=== PATIENT | male | born 1950 | race Caucasian/White ===

== ENCOUNTER 2018-01-05 07:40 | Day surgery (SDC) | payer MEDICARE, BC ==
--- NOTE | 2017-12-27 21:17 | HP ---
CC: Luigi Thakur MD * ADMITTING HISTORY AND PHYSICAL: DATE OF ADMISSION: 01/05/18 ADMITTING DIAGNOSIS: Bladder cancer. PLANNED PROCEDURE: Transurethral resection of bladder tumor (second-look procedure). SURGEON: Clyde Vu MD HISTORY OF PRESENT ILLNESS: Gildardo Samano is a 67-year-old chronic heavy smoker who had initially been evaluated for gross hematuria. He had undergone transurethral resection of a large noninvasive, but very vascular tumor on 12/01/17. 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 There was no muscle reported in the initial sample and he is now being brought in for a second- look procedure to rule out any occult muscle invasive tumor. PAST MEDICAL HISTORY: Significant for: 1. Recent diagnosis of superficial bladder cancer. 2. Hypertension. 3. High cholesterol. MEDICATIONS ON ADMISSION: 1. Cardura 6 mg a day. 2. Simvastatin 40 mg a day. 3. Lisinopril 60 mg a day (I will be checking this dose through Dr. Thakur's office as it seems high to me). 4. Proscar 5 mg a day. ALLERGIES: No known drug allergies. SOCIAL HISTORY: Smoking history: He is a lifelong smoker with a 40 plus pack year smoking history. REVIEW OF SYSTEMS: He denies any chest pain or shortness of breath. There is no history of diabetes mellitus. PHYSICAL EXAMINATION GENERAL: Reveals a pleasant middle-aged gentleman. VITAL SIGNS: Blood pressure is 130/80, pulse 83 per minute and regular, oxygen saturation 99% on room air. LUNGS: Clear bilaterally. CARDIOVASCULAR: Regular rate and rhythm. S1, S2. ABDOMEN: Soft without masses. IMPRESSION: A 67-year-old gentleman with a large noninvasive high grade bladder tumor, who had significant neovascularity noted adjacent to the tumor at the time of initial transurethral resection. PLAN: Transurethral resection bladder tumor, second-look procedure to rule out any occult muscle invasive tumor. [id number]/[facility] #: [id number] [facility]ITAL[facility]
[~2018-01-05 07:40] MED LIST: Buffered Lidocaine 0.9% SYRIN* 5 ML/SYR SYRINGE INTRADERM ONE
[2018-01-05] MEDS ORDERED: cefTRIAXone(*) 2 GM ADDV.VIAL IVPB ONE (07:42)
[2018-01-05] MEDS ORDERED: Midazolam* 1 MG/ML 2 ML VIAL (2 MG) ONE (08:08)
[2018-01-05] MEDS ORDERED: Lisinopril TAB* 10 MG PO ONE (08:15)
[2018-01-05] MEDS ORDERED: Phenylephrine INJ* 10 MG/ML 1 ML VIAL (10 MG) ONE (08:35)
[2018-01-05] MEDS ORDERED: Levalbuterol 1.25MG/0.5ML NEB INH ONE (09:21)
[2018-01-05] MEDS ORDERED: Levalbuterol 0.63MG/3ML NEB* UNIT OF USE INH ONE (09:21)
[2018-01-05] MEDS ORDERED: Levalbuterol 1.25MG/0.5ML NEB ONE (09:23)
[2018-01-05] MEDS ORDERED: Acetaminophen TAB* 325 MG PO PRN (10:41)
[2018-01-05] MEDS ORDERED: Ondansetron INJ* 2 MG/ML VIAL IV PRN (10:41)
[2018-01-05] MEDS ORDERED: Naloxone* 0.4 MG/ML 1 ML VIAL IV PRN (10:41)
[2018-01-05] MEDS ORDERED: fentaNYL* 50 MCG/ML 2 ML VIAL (100 MCG VIAL) IV PRN (10:41)
[2018-01-05] MEDS ORDERED: mitoMYcin PWD* 40 MG in Sterile Water for Inj* 40 ML IRRIGATION ONE (12:00)
[2018-01-05] MEDS ORDERED: Morphine VIAL* 10 MG/ML 1 ML VIAL ONE (12:31)
[2018-01-05] MEDS ORDERED: fentaNYL* 50 MCG/ML 2 ML VIAL (100 MCG VIAL) ONE (12:32)
[2018-01-05] MEDS ORDERED: Acetaminophen TAB* 325 MG ONE (13:12)
[2018-01-05] MEDS ORDERED: hydrALAZINE IV* 20 MG/ML VIAL ONE (13:13)
[2018-01-05 13:53] VITALS: BP 150/80
--- NOTE | 2018-01-06 04:40 | OP ---
CC: Dr. Luigi Thakur * DATE OF OPERATION: 01/05/18 - [facility] DATE OF : 46 SURGEON: Clyde Vu MD ANESTHESIOLOGIST: Dr. Obando. ANESTHESIA: Spinal. PRE-OP DIAGNOSIS: Bladder cancer. POST-OP DIAGNOSIS: Bladder cancer. OPERATIVE PROCEDURE: Cystoscopy, transurethral resection of bladder tumor (3 to 4 cm), second look procedure. COMPLICATIONS: None. POSTOPERATIVE CONDITION: Stable. BLOOD LOSS: Less than 25 cc. INDICATIONS: Gildardo Samano is a 67-year-old chronic heavy smoker, who had undergone transurethral resection for high-grade transitional cell carcinoma. There was significant neovascularity noted at the time of initial resection and he is now being brought in for a second look procedure to make sure that I did not miss any areas of muscle invasive cancer. OPERATIVE FINDINGS: 1. Moderately enlarged prostate. 2. Small areas of possible residual tumor versus reaction from initial transurethral resection and right lateral wall of bladder. No evidence of any invasive tumor noted. POSTOPERATIVE CONDITION: Stable. DESCRIPTION OF PROCEDURE: After induction of spinal anesthesia, the patient was placed in dorsal lithotomy position. Sequential compression devices were in place and functioning. Initial cystoscopy revealed a normal-appearing urethra , moderately enlarged prostate. The bladder was examined. The previously placed stent was in appropriate in the right side. In the right lateral wall at the site of the previous tumor resection, there were some areas of raised irregular mucosa, which may represent residual tumor or may represent reactive changes from the resection. Represented biopsies were obtained and sent for histopathology. Using the resectoscope, all of the abnormal-appearing areas were resected down to muscle. At the end of the procedure, hemostasis appeared satisfactory. There was no evidence of bladder perforation and there were no remaining visibly abnormal areas noted. A 20-[place] Mc[place] was placed for temporary bladder drainage. The patient tolerated the procedure satisfactorily and was transferred back to the recovery area in stable. [id number]/[facility] #: [id number] [facility]
== END 2018-01-05 14:20 | disposition home or self-care (01) ==
LOC: OR 07:40
PROVIDERS: ATTEND Urology
DX: C67.2 Malignant neoplasm of lateral wall of bladder (principal); I10 Essential (primary) hypertension; E78.00 Pure hypercholesterolemia, unspecified; Z72.0 Tobacco use; N40.0 Benign prostatic hyperplasia without lower urinary tract symptoms
CPT/HCPCS: 88305; A9270-GY; J0360; J0696; J2250; J2270; J3010; J9280

== ENCOUNTER 2019-02-04 19:54 | Emergency (ER) | payer MEDICARE, BC ==
--- NOTE | 2019-02-04 20:19 | ED ---
Syncope/Near Syncope - HPI Summary HPI Summary: This patient is a 68 year old male accompanied by his brought in by EMS presenting to [facility] with a chief complaint of syncopal episode. The patient states he was eating dinner when he fainted, per his . EMS states he was orthostatic and bradycardic on scene and en route. The patient denies chest pain. The patient similar incidences 5 and 2 years ago. He states he saw a neurologist for it and they did not find anything. He states he has not done a stress test but has had an ECHO. He has a Hx of hypertension. He states no recent changes to his medications. Medications reviewed, allergies noted. He had bladder cancer a year ago and he states it is in remission as far as he knows. He states the last time he was here he was admitted to the ICU with hyponatremia. The patient smokes tobacco. - History Of Current Complaint Chief Complaint: EDSyncope Time Seen by Provider: 02/04/19 20:08 Hx Obtained From: Patient Context: Witnessed Alleviating Factor(s): Spontaneous Resolution - Allergies/Home Medications Allergies/Adverse Reactions: Allergies Allergy/AdvReac Type Severity Reaction Status Date / Time No Known Allergies Allergy Verified 02/04/19 19:59 Home Medications: Home Medications Chlorthalidone 12.5 mg PO DAILY 02/04/19 [History Confirmed 02/04/19] PMH/Surg Hx/FS Hx/Imm Hx Endocrine/Hematology History: Denies: Hx Anticoagulant Therapy, Hx Diabetes Cardiovascular History: Reports: Hx Hypercholesterolemia, Hx Hypertension - ON MEDICATION FOR Denies: Hx Congestive Heart Failure, Hx Pacemaker/ICD Respiratory History: Denies: Hx Asthma GI History: Reports: Hx Irritable Bowel Denies: Hx Crohn's Disease, Hx Diverticulosis, Hx Gastrointestinal Bleed History: Reports: Other Problems/Disorders - BLADDER TUMOR Denies: Hx Dialysis, Hx Renal Disease Musculoskeletal History: Denies: Hx Arthritis, Hx Rheumatoid Arthritis - has L sided hip pain x few days, better after BM today, Hx Back Problems, Hx Bursitis, Hx Congenital Bone Abnormalities, Hx Fibromyalgia, Hx Gout, Hx Orthopedic Injury, Hx Osteoporosis, Hx Scoliosis, Hx Tendonitis, Other Musculoskeletal History Sensory History: Reports: Hx Contacts or Glasses - GLASSES-READING Denies: Hx Hearing Aid Opthamlomology History: Reports: Hx Contacts or Glasses - GLASSES-READING Neurological History: Reports: Hx Seizures - pt reports unsure if had seizure 3 years ago Denies: Hx Dementia, Hx Developmental Delay, Hx Headaches, Hx Migraine, Hx Nerve Disease, Hx Spinal Cord Injury, Hx Transient Ischemic Attacks (TIA), Other Neuro Impairments/Disorders Psychiatric History: Denies: Hx Panic Disorder - Surgical History Surgery Procedure, Year, and Place: TONSILECTOMY A CHILD. TRANSURETHRAL RESECTION OF BLADDER TUMOR-11/2017 Hx Anesthesia Reactions: Yes - LOW HEART RATE WITH LAST PROCEDURE - Immunization History Date of Tetanus Vaccine: fall 2013 Date of Influenza Vaccine: unknown Infectious Disease History: No Infectious Disease History: Denies: Hx Clostridium Difficile, Hx Hepatitis, Hx Human Immunodeficiency Virus (HIV), Hx of Known/Suspected MRSA, Hx Shingles, Hx Tuberculosis, Hx Known/ Suspected VRE, Hx Known/Suspected VRSA, History Other Infectious Disease, Traveled Outside the [place] in Last 30 Days - Family History Known Family History: Negative: Hypertension, Diabetes - Social History Alcohol Use: Daily Alcohol Amount: 2-3 drinks Substance Use Type: Reports: None Hx Tobacco Use: Yes Smoking Status (MU): Heavy Every Day Tobacco Smoker Type: Cigarettes Amount Used/How Often: 1 PPD X 40 YEARS Have You Smoked in the Last Year: No Review of Systems Negative: Fever Positive: Syncope All Other Systems Reviewed And Are Negative: Yes Physical Exam - Summary Physical Exam Summary: Constitutional: Well-developed, Well-nourished, Alert. (-) Distressed Skin: Warm, Dry HENT: Normocephalic; Atraumatic Eyes: Conjunctiva normal Neck: Musculoskeletal ROM normal neck. (-) JVD, (-) Stridor, (-) Tracheal deviation Cardio: Rhythm regular, rate bradycardic in the 50s, Heart sounds normal; Intact distal pulses; Radial pulses are 2+ and symmetric. (-) Murmur Pulmonary/Chest wall: Effort normal. (-) Respiratory distress, (-) Wheezes, (-) Rales Abd: Soft, (-) tenderness, (-) Distension, (-) Guarding, (-) Rebound Musculoskeletal: (-) Edema Lymph: (-) Cervical adenopathy Neuro: Alert, Oriented x3 Psych: Mood and affect Normal Triage Information Reviewed: Yes Vital Signs On Initial Exam: Initial Vitals Temp Pulse Resp BP Pulse Ox 96.6 F 59 16 110/65 97 02/04/19 19:55 02/04/19 19:55 02/04/19 19:55 02/04/19 19:55 02/04/19 19:55 Vital Signs Reviewed: Yes Procedures - Sedation Patient Received Moderate/Deep Sedation with Procedure: No Diagnostics - Vital Signs Vital Signs Temp Pulse Resp BP Pulse Ox 02/04/19 19:55 96.6 F 59 16 110/65 97 - Laboratory Result Diagrams: 02/04/19 20:32 02/04/19 20:32 Lab Statement: Any lab studies that have been ordered have been reviewed, and results considered in the medical decision making process. Course/Dx Course Of Treatment: Patient is here after syncopal episode. Patient was drinking wine at and he became flushed and felt like he was going to faint. Patient was back to baseline upon arrival here. Patient was [place] bradycardic but no abnormality seen on EKG outside of that. Patient had blood performed which showed no abnormality outside of mild hyponatremia. Patient was offered admission but declined. Patient is given cardiology follow-up. - Diagnoses Provider Diagnoses: Syncope Discharge ED - Sign-Out/Discharge Documenting (check all that apply): Patient Departure - Discharge - Discharge Plan Condition: Stable Disposition: HOME Patient Education Materials: Syncope (ED) Referrals: Luigi Thakur MD [Primary Care Provider] - Additional Instructions: Return to ED with chest pain, SOB, palpitations. Call family medicine and your foot drill operator on Wednesday. - Billing Disposition and Condition Condition: STABLE Disposition: Home - Attestation Statements Document Initiated by Mike: Yes Documenting Scribe: Chin Balderas Provider For Whom Mike is Documenting (Include Credential): Jacky Wynn MD Scribe Attestation: Chin Espinosa, scribed for Jacky Wynn MD on 02/04/19 at 2154. Scribe Documentation Reviewed: Yes Provider Attestation: The documentation as recorded by the Chin pham accurately reflects the service I personally performed and the decisions made by me, Jacky Wynn MD Status of Scribe Document: Viewed
[2019-02-04 20:37] LABS: ABS Eosinophils 0.1 10^3/ul (0-0.6); ABS Lymphocytes 1.2 10^3/ul (1.0-4.8); ABS Monocytes 0.5 10^3/ul (0-0.8); Eosinophil % 1.5 %; Hematocrit 41 % (42-52); Mean Corpuscular HGB Conc 34 g/dL (31-36); Mean Corpuscular Hemoglobin 35 pg (27-31); Mean Corpuscular Volume 101 fL (80-94); Mean Platelet Volume 6.8 fL (7.4-10.4); Platelet Count 216 10^3/uL (150-450); Red Blood Count 4.03 10^6 /uL (4.18-5.48); Red Cell Distribution Width 14 % (10-15); White Blood Count 6.9 10^3/uL (3.5-10.8)
[2019-02-04 20:54] LABS: Albumin 3.9 g/dL (3.2-5.2); BUN/Creatinine Ratio 13.4 (8-20); Calcium 9.5 mg/dL (8.6-10.3); EGFR African American 73.1 (>60); EGFR Non-African American 60.4 (>60); Globulin 2.6 g/dL (2-4); Potassium 3.5 mmol/L (3.5-5.0); Total Protein 6.5 g/dL (6.4-8.9)
[2019-02-04 20:55] LABS: Albumin/Globulin Ratio 1.5 (1-3); Total Bilirubin 0.5 mg/dL (0.2-1.0)
[2019-02-04 20:57] LABS: Troponin I 0.01 ng/mL (<0.04)
[2019-02-04 21:52] VITALS: BP 143/81
== END 2019-02-04 21:51 | disposition home or self-care (01) ==
LOC: ED 19:54
DX: R55 Syncope and collapse (principal); E78.00 Pure hypercholesterolemia, unspecified; I10 Essential (primary) hypertension; F17.210 Nicotine dependence, cigarettes, uncomplicated; Z79.899 Other long term (current) drug therapy
CPT/HCPCS: 36415; 71045; 80053; 83880; 84484; 85025; 93005; 99283